=== PATIENT | male | born 1955 | race Two or more races ===

== ENCOUNTER → 2017-04-26 | Outpatient (CLI) | payer BC ==
[~2017-04-26] MED LIST: ALB18R INH; ALBU8.5H IH; AZIT-17 PO; CIPR-214 PO; DOXY-179 PO; FLUT1AER INH; FLUT1DIS28 IH; IPRA4AER IH; PRED20TA6 PO; PROM5SYR PO
--- NOTE | 2017-04-26 15:43 | RADIOLOGY IMAGING REPORT ---
FACILITY: [facility] - [place] PATIENT NAME: John Philip : 1955 MR: [id number] V: [id number] EXAM DATE: ORDERING PHYSICIAN: KENROY ALAN TECHNOLOGIST: Location: [facility] Patient: John Philip : 1955 Visit/Account:[id number] Date of Sevice: 04/26/2017 CT CHEST HIGH RES WO CONTRAST History: Smoker. COPD. TECHNIQUE: Contiguous axial images were performed through the chest to the level of the adrenal gla nds. Thereafter, non-contiguous 1 mm axial imaging performed. No IV contrast was administered. Chavez l and sagittal reformatting was also performed. One of the following dose optimization techniques was utilized in the performance of this exam: Automated exposure control; adjustment of the mA and/or kV according to the patient's size; or use of an iterative reconstruction technique. Specific deta ils can be referenced in the facility's radiology CT exam operational policy. No IV contrast was administered. COMPARISON STUDIES: none. Lungs / Pleura: Despite reported smoking history, there is no definite evidence of emphysema. There are no bulla identified. Lungs do appear voluminous however. No evidence of interstitial pulmonary f ibrosis. There is a 3 mm subpleural micronodule in the right middle lobe (axial image 78 series 7) and 2 micro nodules in the left upper lobe (axial images 36 and 35) largest measuring 2 mm in diameter. Mediastin um/nodes: negative. Heart and vessels: negative. 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 No con cerning bone lesions. Upper abdomen: Visualized abdominal viscera negative. IMPRESSION: Despite smoking history there is no definite morphologic changes to confirm emphysema. Several pulmonary micronodules as detailed above, the largest measuring 3 mm diameter. Recommend one year follow-up noncontrast CT per Fleischner Society guidelines detailed below. Current Fleischner Society recommendations for incidental pulmonary nodules 4mm or less in size (aver age of length and width): - In a patient with low risk for malignancy (i.e., minimal or absent smoking history, no known malig janet or other risk factors): No follow-up necessary. - In a patient at high risk for malignancy (e.g., smoking history and/or other known risk factors): Single [address] If unchanged no further follow-up necessary. (Mejia H, Mitchell STEPHENS, Kevyn G, et al. Guidelines for management of small pulmonary nodules detected on CT scans: a statement from the Fleischner Society. Radiology. 2005; 237: 395-400). Report Dictated By: Rober Martines MD at 04/26/2017 3:32 PM Report E-Signed By: Rober Martines MD at 04/26/2017 3:39 PM WSN:[id number]
== END ==
LOC: CT 01:15
PROVIDERS: ATTEND Internal Medicine
DX: R91.8 Other nonspecific abnormal finding of lung field (principal); F17.200 Nicotine dependence, unspecified, uncomplicated
CPT/HCPCS: 71250

== ENCOUNTER → 2018-05-06 | Outpatient (CLI) | payer BC ==
[~2018-05-06] MED LIST changes: +ALBU2.5V36 INH; +FLU60SYR36 IM; +LEVO-85 PO; +PRED-1 PO; +TIO18R INH
--- NOTE | 2018-05-07 02:48 | RADIOLOGY IMAGING REPORT ---
FACILITY: [facility] PATIENT NAME: John Philip : 1955 MR: [id number] V: [id number] EXAM DATE: ORDERING PHYSICIAN: JAYLA OQUENDO TECHNOLOGIST: Location: [facility] [place] Patient: John Philip : 1955 Visit/Account:[id number] Date of Sevice: 05/06/2018 TWO VIEW CHEST 05/06/2018 5:19 PM. INDICATION: COPD, chest tightness. COMPARISON: 12/14/2015 radiograph, 04/26/2017 CT. FINDINGS: Lungs are hyperexpanded. Questionable vague patchy opacification over the right lower lung . Lungs are otherwise clear. No pneumothorax or pleural effusion. Heart size is normal. IMPRESSION: 1. Questionable vague opacification over the right lower lung could represent infection in the appro priate setting. Consider 1 a 3 month follow-up. 2. Chronic hyperexpansion consistent with known emphysema. Report Dictated By: Andre Aparicio MD at 05/07/2018 2:40 AM Report E-Signed By: Andre Aparicio MD at 05/07/2018 2:44 AM WSN:[id number]
== END ==
LOC: RAD 17:08
PROVIDERS: ATTEND Internal Medicine
DX: J44.1 Chronic obstructive pulmonary disease with (acute) exacerbation (principal); R91.8 Other nonspecific abnormal finding of lung field
CPT/HCPCS: 71046